=== PATIENT | male | born 1985 | race Caucasian/White ===

== ENCOUNTER 2019-08-24 20:24 | Emergency (ER) | payer SELFPAY ==
[2019-08-24] MEDS ORDERED: Atenolol 50 MG Tab PO ONE (20:41)
[2019-08-24] MEDS ORDERED: Sodium Chloride 0.9% 1,000 ML IV SCH (20:45)
--- NOTE | 2019-08-24 21:16 | CR ---
Chest: Portable view of the chest was obtained. Comparison: No previous chest x-ray. Heart size and mediastinum are normal. Lungs are clear. Bony structures are grossly intact. Impression: 1. Nothing acute is seen on portable chest x-ray. Diagnostic code #1 This report was dictated in [place] [employer] Time
== END 2019-08-24 21:09 | disposition left against medical advice (07) ==
LOC: MW.ED 20:24
DX: Z02.89 Encounter for other administrative examinations (principal)
CPT/HCPCS: 71045; 71045-26; 93005